=== PATIENT | female | born 1960 | race Caucasian/White ===

== ENCOUNTER 2024-03-16 14:37 | Emergency (ER) | payer MEDICARE, OTHER ==
[2024-03-16 14:51] VITALS: RESP 16; TEMP 98.2
--- NOTE | 2024-03-16 15:25 | ED ---
SOB HPI - General Source: patient, RN notes reviewed Mode of arrival: ambulatory Limitations: no limitations <Snow Main - Last Filed: 03/16/24 15:22> - General Source: patient, RN notes reviewed, old records reviewed Mode of arrival: ambulatory Limitations: no limitations - History of Present Illness MD Complaint: shortness of breath -: days(s), week(s) Severity: moderate Severity scale (1-10): 5 Consistency: constant Improves With: nothing Worsens With: nothing Context: recent URI, anxiety Associated Symptoms: denies other symptoms <Sergo Nicholas - Last Filed: 03/17/24 17:22> - General Chief Complaint: Shortness of Breath Stated Complaint: SOB,chest pain Time Seen by Provider: 03/16/24 14:50 - History of Present Illness Initial Comments: Quick [id number] female with a history of asthma presenting to the emergency department plan of chest pain shortness of breath that has been intermittent since weekend. Patient had outside emergency department workup completed with an elevated D-dimer. Patient had repeat lab work with her [facility] provider which again revealed elevated D-dimer. Patient's prehemmer, Dr. Palacios, recommend that she report to the ER to rule out blood clot of bilateral lower extremities and chest. As blood thinner use (Snow Main) This is a 63-year-old female to the ER for evaluation of shortness of breath for about a week with elevated D-dimer as an outpatient, (Sergo Nicholas) - Related Data Allergies Allergy/AdvReac Type Severity Reaction Status Date / Time Iodinated Contrast Media Allergy Anaphylaxis Verified 03/16/24 14:52 ketorolac [From Toradol] Allergy Unknown Verified 03/16/24 14:52 Penicillins Allergy Rash/Hives Verified 03/16/24 14:52 morphine AdvReac Nausea & Verified 03/16/24 14:52 Vomiting Review of Systems ROS Other: All systems not noted in ROS Statement are negative. <Snow Main - Last Filed: 03/16/24 15:22> ROS Other: All systems not noted in ROS Statement are negative. <Sergo Nicholas - Last Filed: 03/17/24 17:22> ROS Statement: Those systems with pertinent positive or pertinent negative responses have been documented in the HPI. Past Medical History Past Medical History: Asthma, Hypertension History of Any Multi-Drug Resistant Organisms: None Reported Past Surgical History: Appendectomy, Section, Cholecystectomy, Hysterectomy Past Psychological History: No Psychological Hx Reported Smoking Status: Former smoker Past Alcohol Use History: None Reported Past Drug Use History: None Reported <Prakash Mainoe - Last Filed: 03/16/24 15:22> General Exam Limitations: no limitations <StimireillerPrakashSnow - Last Filed: 03/16/24 15:22> General appearance: alert, in no apparent distress Head exam: Present: atraumatic, normocephalic, normal inspection Eye exam: Present: normal appearance, PERRL, EOMI. Absent: scleral icterus, conjunctival injection, periorbital swelling ENT exam: Present: normal exam, mucous membranes moist Neck exam: Present: normal inspection. Absent: tenderness, meningismus, lymphadenopathy Respiratory exam: Present: normal lung sounds bilaterally. Absent: respiratory distress, wheezes, rales, rhonchi, stridor Cardiovascular Exam: Present: regular rate, normal rhythm, normal heart sounds. Absent: systolic murmur, diastolic murmur, rubs, gallop, clicks GI/Abdominal exam: Present: soft, normal bowel sounds. Absent: distended, tenderness, guarding, rebound, rigid Extremities exam: Present: normal inspection, full ROM, normal capillary refill. Absent: tenderness, pedal edema, joint swelling, calf tenderness Back exam: Present: normal inspection Neurological exam: Present: alert, oriented X3, CN II-XII intact Psychiatric exam: Present: normal affect, normal mood Skin exam: Present: warm, dry, intact, normal color. Absent: rash <Sergo Nicholas - Last Filed: 03/17/24 17:22> - General Exam Comments Initial Comments: Visual Physical Exam Vital signs reviewed General: Well-appearing, nontoxic, no acute distress. Head: Normocephalic, atraumatic Eyes: PERRLA, EOMI ENT: Airway patent Chest: Nonlabored breathing Skin: No visual rash, normal skin tone Neuro: Alert and oriented 3 Musculoskeletal: No gross abnormalities (Stieler,Snow) Course <Sergo Nicholas - Last Filed: 03/17/24 17:22> Vital Signs 03/16/24 03/16/24 03/16/24 14:47 17:48 19:55 Temperature 98.2 F Pulse Rate 86 59 L 53 L Respiratory 16 16 16 Rate Blood Pressure 162/78 163/78 142/71 O2 Sat by Pulse 96 100 94 L Oximetry - Reevaluation(s) Reevaluation #1: 03/16/24 18:15 Medical records reviewed (Sergo Nicholas) Reevaluation #2: 03/16/24 18:15 Patient symptoms unchanged (Sergo Nicholas) Reevaluation #3: 03/16/24 18:15 Patient informed of results questions answered (Sergo Nicholas) Reevaluation #4: Was pt. sent in by a medical professional or institution (CHRISTO Acosta, LOGISTICS TECHNICIAN, urgent care, hospital, or skilled nursing...) When possible be specific @ -no Did you speak to anyone other than the patient for history (EMS, parent, family, police, friend...)? What history was obtained from this source @ -no Did you review nursing and triage notes (agree or disagree)? Why? @ -agree Are old charts reviewed (outside hosp., previous admission, EMS record, old EKG, old radiological studies, urgent care reports/EKG's, skilled nursing records)? Report findings @ -yes Differential Diagnosis (chest pain, altered mental status, abdominal pain women, abdominal pain men, vaginal bleeding, weakness, fever, dyspnea, syncope, headache, dizziness, GI bleed, back pain, seizure, CVA, palpatations, mental health, musculoskeletal)? @ -prior EKG interpreted by me (3pts min.). @ -yes X-rays interpreted by me (1pt min.). @ -no CT interpreted by me (1pt min.). @ -yes negative for acute disease U/S interpreted by me (1pt. min.). @ -yes negative for acute disease What testing was considered but not performed or refused? (CT, X-rays, U/S, labs)? Why? @ -none What meds were considered but not given or refused? Why? @ -none Did you discuss the management of the patient with other professionals (professionals i.e. , CHRISTO, LOGISTICS TECHNICIAN, lab, RT, psych nurse, adoption social worker, braided band assembler, teacher, commanding officer motorized squad, immigration case manager)? Give summary @ -no Was smoking cessation discussed for >3mins.? @ -no Was critical care preformed (if so, how long)? @ -no Were there social determinants of health that impacted care today? How? (Homelessness, low income, unemployed, alcoholism, drug addiction, transportation, low edu. Level, literacy, decrease access to med. care, residential, rehab)? @ -none Was there de-escalation of care discussed even if they declined (Discuss DNR or withdrawal of care, Hospice)? DNR status @ -no What co-morbidities impacted this encounter? (DM, HTN, Smoking, COPD, CAD, Cancer, CVA, ARF, Chemo, Hep., AIDS, mental health diagnosis, sleep apnea, mo rbid obesity)? @ -none Was patient admitted / discharged? Hospital course, mention meds given and r oute, prescriptions, significant lab abnormalities, going to OR and other pertinent info. @ - 63 female with negative CTA negative ultrasound patient can be discharged home, patient was sent in for elevated D-dimer PE DVT study Discharge Undiagnosed new problem with uncertain prognosis? @ -no Drug Therapy requiring intensive monitoring for toxicity (Heparin, Nitro, Insulin, Cardizem)? @ -no Were any procedures done? @ -no Diagnosis/symptom? @ -Normal exam, dyspnea Acute, or Chronic, or Acute on Chronic? @ -Acute Uncomplicated (without systemic symptoms) or Complicated (systemic symptoms)? @ -Complicated Side effects of treatment? @ -no Exacerbation, Progression, or Severe Exacerbation? @ -exacerbation Poses a threat to life or bodily function? How? (Chest pain, USA, SD, pneumonia, PE, COPD, DKA, ARF, appy, cholecystitis, CVA, Diverticulitis, Homicidal, Suicidal, threat to staff... and all critical care pts) @ -yes with PE or DVT (Sergo Nicholas) Reevaluation #5: Differential Dyspnea: Coronary syndrome, arrhythmia, tamponade, asthma, COPD, pulmonary embolism, pneumonia, pneumothorax, pulmonary effusion, anaphylaxis, diabetic ketoacidosis, flailed chest, pulmonary contusion, diaphragmatic rupture, anemia, neuromuscular, this is not meant to be an all-inclusive list. (Sergo Nicholas) Medical Decision Making <Snow Main - Last Filed: 03/16/24 15:22> - Lab Data Result diagrams: 03/16/24 14:30 03/16/24 14:30 - EKG Data -: EKG Interpreted by Me (EKG is sinus 71 NH 178 QRS 87 QTc 391) - Radiology Data Radiology results: report reviewed (CTA chest negative for acute disease ultrasound negative for acute disease), image reviewed <Sergo Nicholas - Last Filed: 03/17/24 17:22> - Medical Decision Making I completed the quick note portion of this chart signed Snow Main PA-C (Snow Main) 63 female with negative CTA negative ultrasound patient can be discharged home (Sergo Nicholas) - Lab Data Lab Results 03/16/24 03/16/24 03/16/24 Range/Units 14:30 14:30 14:30 WBC 11.1 H (3.8-10.6) k/uL RBC 4.91 (3.80-5.40) m/uL Hgb 13.3 (11.4-16.0) gm/dL Hct 41.1 (34.0-46.0) % MCV 83.8 (80.0-100.0) fL MCH 27.0 (25.0-35.0) pg MCHC 32.3 (31.0-37.0) g/dL RDW 13.4 (11.5-15.5) % Plt Count 414 (150-450) k/uL MPV 7.4 Neutrophils % 51 % Lymphocytes % 42 % Monocytes % 5 % Eosinophils % 1 % Basophils % 0 % Neutrophils # 5.6 (1.3-7.7) k/uL Lymphocytes # 4.6 (1.0-4.8) k/uL Monocytes # 0.6 (0-1.0) k/uL Eosinophils # 0.1 (0-0.7) k/uL Basophils # 0.1 (0-0.2) k/uL PT 10.5 (10.0-12.5) sec INR 0.9 (<1.2) APTT 31.5 H (22.0-30.0) sec D-Dimer (<0.60) mg/L FEU Sodium 139 (137-145) mmol/L Potassium 4.5 (3.5-5.1) mmol/L Chloride 103 (98-107) mmol/L Carbon Dioxide 32 H (22-30) mmol/L Anion Gap 4 mmol/L BUN 20 H (7-17) mg/dL Creatinine 1.00 (0.52-1.04) mg/dL Est GFR (CKD-EPI)AfAm 69 (>60 ml/min/1.73 sqM) Est GFR (CKD-EPI)NonAf 60 (>60 ml/min/1.73 sqM) Glucose 112 H (74-99) mg/dL Calcium 9.4 (8.4-10.2) mg/dL Magnesium 1.8 (1.6-2.3) mg/dL Total Bilirubin 0.7 (0.2-1.3) mg/dL AST 40 H (14-36) U/L ALT 15 (4-34) U/L Alkaline Phosphatase 74 (38-126) U/L Troponin I (0.000-0.034) ng/mL NT-Pro-B Natriuret Pep 139 pg/mL Total Protein 7.1 (6.3-8.2) g/dL Albumin 4.0 (3.5-5.0) g/dL 03/16/24 03/16/24 Range/Units 14:30 14:30 WBC (3.8-10.6) k/uL RBC (3.80-5.40) m/uL Hgb (11.4-16.0) gm/dL Hct (34.0-46.0) % MCV (80.0-100.0) fL MCH (25.0-35.0) pg MCHC (31.0-37.0) g/dL RDW (11.5-15.5) % Plt Count (150-450) k/uL MPV Neutrophils % % Lymphocytes % % Monocytes % % Eosinophils % % Basophils % % Neutrophils # (1.3-7.7) k/uL Lymphocytes # (1.0-4.8) k/uL Monocytes # (0-1.0) k/uL Eosinophils # (0-0.7) k/uL Basophils # (0-0.2) k/uL PT (10.0-12.5) sec INR (<1.2) APTT (22.0-30.0) sec D-Dimer 1.04 H (<0.60) mg/L FEU Sodium (137-145) mmol/L Potassium (3.5-5.1) mmol/L Chloride (98-107) mmol/L Carbon Dioxide (22-30) mmol/L Anion Gap mmol/L BUN (7-17) mg/dL Creatinine (0.52-1.04) mg/dL Est GFR (CKD-EPI)AfAm (>60 ml/min/1.73 sqM) Est GFR (CKD-EPI)NonAf (>60 ml/min/1.73 sqM) Glucose (74-99) mg/dL Calcium (8.4-10.2) mg/dL Magnesium (1.6-2.3) mg/dL Total Bilirubin (0.2-1.3) mg/dL AST (14-36) U/L ALT (4-34) U/L Alkaline Phosphatase (38-126) U/L Troponin I <0.012 (0.000-0.034) ng/mL NT-Pro-B Natriuret Pep pg/mL Total Protein (6.3-8.2) g/dL Albumin (3.5-5.0) g/dL Disposition <Snow Main - Last Filed: 03/16/24 15:22> Is patient prescribed a controlled substance at d/c from ED?: No Time of Disposition: 19:30 <Sergo Nicholas - Last Filed: 03/17/24 17:22> Clinical Impression: Dyspnea Disposition: HOME SELF-CARE Condition: Good Instructions (If sedation given, give patient instructions): Dyspnea (ED) Referrals: Todd Samayoa MD [Primary Care Provider] - 1-2 days
[2024-03-16 15:33] LABS: Basophils # (A) 0.1 k/uL (0-0.2); Basophils % (A) 0 %; Eosinophils # (A) 0.1 k/uL (0-0.7); Eosinophils % (A) 1 %; HCT 41.1 % (34.0-46.0); HGB 13.3 gm/dL (11.4-16.0); Lymphocytes # (A) 4.6 k/uL (1.0-4.8); Lymphocytes % (A) 42 %; MCHC 32.3 g/dL (31.0-37.0); MCV 83.8 fL (80.0-100.0); Mean Platelet Volume 7.4; Monocytes # (A) 0.6 k/uL (0-1.0); Monocytes % (A) 5 %; Neutrophils # (A) 5.6 k/uL (1.3-7.7); Neutrophils % (A) 51 %; Platelet Count 414 k/uL (150-450); RBC 4.91 m/uL (3.80-5.40); RDW 13.4 % (11.5-15.5); WBC 11.1 k/uL (3.8-10.6)
[2024-03-16 15:45] LABS: INR 0.9 (<1.2); Partial Thromboplastin Time 31.5 sec (22.0-30.0); Prothrombin Time 10.5 sec (10.0-12.5)
[2024-03-16 15:48] LABS: ALT 15 U/L (4-34); African American GFR (CKD) 69 (>60 ml/min/1.73 sqM); Anion Gap 4 mmol/L; Blood Urea Nitrogen 20 mg/dL (7-17); Calcium 9.4 mg/dL (8.4-10.2); Carbon Dioxide 32 mmol/L (22-30); Chloride 103 mmol/L (98-107); Glucose 112 mg/dL (74-99); Non-African American GFR(CKD) 60 (>60 ml/min/1.73 sqM); Sodium 139 mmol/L (137-145); Total Bilirubin 0.7 mg/dL (0.2-1.3); Total Protein 7.1 g/dL (6.3-8.2)
[2024-03-16 15:57] LABS: NT-Pro-B-Type Natriuretic Pept 139 pg/mL
--- NOTE | 2024-03-16 16:22 | US ---
EXAMINATION TYPE: US venous doppler duplex LE BI DATE OF EXAM: 03/16/2024 4:04 PM COMPARISON: NONE CLINICAL INDICATION: Female, 63 years old with history of elevated dimer, SOB, R/O clot; chest pain, elevated d-dimer, no h/o dvt, Pain, Swelling TECHNIQUE: The lower extremity deep venous system is examined utilizing real time linear array sonog charles with graded compression, color doppler sonography, and spectral doppler. SIDE PERFORMED: Bilateral FINDINGS: VESSELS IMAGED: Common Femoral Vein Deep Femoral Vein Greater Saphenous Vein * Femoral Vein Popliteal Vein Small Saphenous Vein * Proximal Calf Veins (* superficial vessels) The deep venous systems of both lower extremities from the common femoral remains to the proximal puneet f veins are patent and compressible with augmentable flow and with normal waveforms. IMPRESSION: No evidence of bilateral lower extremity DVT from the common femoral veins to the proximal calf veins [facility], , 03/16/2024 4:19 PM
[2024-03-16 16:27] LABS: Magnesium 1.8 mg/dL (1.6-2.3); Potassium 4.5 mmol/L (3.5-5.1)
[2024-03-16 16:28] LABS: AST 40 U/L (14-36); Alkaline Phosphatase 74 U/L (38-126)
[2024-03-16] MEDS: SODIUM CHLORIDE 0.9% 1,000 ML IV STA (18:19)
[2024-03-16] MEDS: methylPREDNISolone SOD SUCCI 125 MG/2 ML VIAL IV STA (18:19)
[2024-03-16] MEDS: FAMOTIDINE 20 MG/2 ML VIAL IV STA (18:20)
[2024-03-16] MEDS: diphenhydrAMINE 50 MG/ML 1 ML VIAL IVP STA (18:20)
--- NOTE | 2024-03-16 19:21 | CT ---
EXAMINATION TYPE: CT chest angio for PE DATE OF EXAM: 03/16/2024 6:40 PM COMPARISON: None CLINICAL INDICATION: Female, 63 years old with history of elevated d-dimer, SOB, CP; elevated d-dimer TECHNIQUE/CONTRAST: CTA scan of the thorax is performed with IV Contrast, patient injected with 100 mL of Isovue 370, MIP images are created and reviewed these are created on a separate workstation.. CT DLP: 657.3 mGycm, Automated exposure control for dose reduction was used. FINDINGS: Pulmonary Artery: There is no evidence for a filling defect within the pulmonary vasculature to sugge st acute pulmonary embolism. The pulmonary artery is of normal size. Lungs/Pleura: No evidence of focal consolidation, pleural effusion or pneumothorax. Right lower lobe calcified granuloma. Left lower lobe pulmonary nodule image 11 mm. Airway: Large airways are patent. Heart: Heart is within normal limits for size. Vasculature: No evidence of aortic aneurysm. Mediastinum: No gross evidence of adenopathy. Scattered calcified lymph nodes throughout the mediasti num. Musculoskeletal: No acute osseous abnormalities Soft Tissues/lymph nodes: Unremarkable. Lower neck: No significant findings. Upper Abdomen: The gallbladder surgically absent. Scattered calcified renals and spleen. There is IMPRESSION: 1. No evidence of pulmonary embolism. 2. Left lower lobe pulmonary nodule measuring 10 mm. Short-term follow-up in 3 months recommended to ensure stability. 3. 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 Follow up recommendations for incidental pulmonary nodules, if there are any, are per [employer] [employer] or [employer]. https://radiopaedia.org/articles/bcrcnawvri-xejpvoi-nscohqfpm-khlcql-rgpuepdqdcouwjo-[email or web address]?lang=us [facility], , 03/16/2024 7:18 PM
[2024-03-16 20:05] VITALS: BP 142/71; PULSE 53
== END 2024-03-16 20:00 | disposition home or self-care (01) ==
LOC: EC 14:37
DX: R06.00 Dyspnea, unspecified (principal); Z87.891 Personal history of nicotine dependence; Z88.0 Allergy status to penicillin; Z88.5 Allergy status to narcotic agent; Z91.041 Radiographic dye allergy status; Z88.6 Allergy status to analgesic agent
CPT/HCPCS: 36415; 93005; 85379; 83880; 80053; 83735; 84484; 85025; 85610; 85730; 93970; 71275; 99285; 96374; 96375 ×2; 96361; J1200; J3490; Q9967; J2919